=== PATIENT | male | born 1985 | race African-American/Black ===

== ENCOUNTER 2018-07-23 17:56 | Emergency (ER) | payer OTHER ==
[~2018-07-23] VITALS: Ht 188 cm; Wt 99.8 kg
[2018-07-23] MEDS ORDERED: VENTOLIN HFA 1818 GM INH (20:13)
[2018-07-23 21:10] VITALS: BP 128/74
== END 2018-07-23 21:11 | disposition home or self-care (01) ==
LOC: ER 17:56
DX: J45.901 Unspecified asthma with (acute) exacerbation (principal); R11.2 Nausea with vomiting, unspecified